=== PATIENT | male | born 1945 | race Asian ===

== ENCOUNTER 2016-11-08 08:42 | Day surgery (SDC) | payer OTHER, MEDICARE ==
[2016-11-07 14:42] VITALS: BMI 27.3
[2016-11-08] MEDS ORDERED: PROPOFOL 20 ML ONE ×5 (09:46→09:47)
[2016-11-08 10:47] VITALS: TEMP 97.7
[2016-11-08 11:28] VITALS: BP 101/77; PULSE 54
--- NOTE | 2016-11-11 13:15 | PATH ---
Surgical Pathology Report Patient Name: RAJIV LINDA [facility]. Rec. #: [id number] /Age/Gender: 1945 (Age: 71) / M Account: [id number] Location: [facility], [place]-ENDOSCOPY Taken: 11/08/2016 Received: 11/08/2016 Reported: 11/11/2016 Physicians: Jackie Milligan M.D. Specimen(s) Received A: BX 2ND PORTION DUODENUM & BULB B: BX ANTRUM C: BX GE JUNCTION D: BX RECTAL POLYPS Clinical History Adenoma surveillance, rule out celiac disease Gastritis, rectal polyps Final Diagnosis A. DUODENUM, SECOND PORTION AND BULB, BIOPSY: DUODENAL MUCOSA WITH MILD CHRONIC INFLAMMATION. NO HISTOLOGIC EVIDENCE OF GLUTEN SENSITIVE ENTEROPATHY (CELIAC DISEASE). B. STOMACH, ANTRUM, BIOPSY: GASTRIC ANTRAL AND OXYNTIC MUCOSA WITH MODERATE CHRONIC GASTRITIS WITH INTESTINAL METAPLASIA AND MARKED REACTIVE GASTROPATHY. NEGATIVE FOR DYSPLASIA. IMMUNOSTAIN FOR H. PYLORI IS NEGATIVE FOR ORGANISMS. C. GE JUNCTION, BIOPSY: SQUAMOUS EPITHELIUM WITH MARKED CHRONIC INFLAMMATION WITH FOCAL SIGNIFICANT INCREASE IN EOSINOPHILS (SEE COMMENT). NO COLUMNAR EPITHELIUM PRESENT (NO INTESTINAL METAPLASIA OF LANDRUM'S ESOPHAGUS IDENTIFIED). Comment: The biopsy shows significant increase of intraepithelial eosinophils. The number of eosinophils focally reaches 15-20/HPF. This eosinophilic count is above the usual numbers of eosinophils seen in GERD, reaching the threshold for eosinophilic esophagitis, and may suggest eosinophilic esophagitis in proper clinical and endoscopic settings. Clinical, endoscopic correlations and follow up are suggested. D. RECTUM, POLYPS, BIOPSY: HYPERPLASTIC POLYPS. Electronically Signed Frank Koehler M.D. Gross Description A. Received in formalin, labeled "biopsy second portion of duodenum and bulb" are 6 torres, irregular portions of soft tissue ranging from 0.2-0.5 cm. in greatest dimension. The specimens are submitted in toto in one cassette. B. Received in formalin, labeled "biopsy antrum" are 4 torres, irregular portions of soft tissue ranging from 0.1-0.5 cm in greatest dimension. The specimens are submitted in toto in one cassette. C. Received in formalin, labeled "biopsy GE junction" are 2 torers, irregular portions of soft tissue measuring 0.1 and 0.5 cm in greatest dimension. The specimens are submitted in toto in one cassette. D. Received in formalin, labeled "biopsy rectal polyps" are 2 torres, irregular portions of soft tissue measuring 0.5 and 0.8 cm in greatest dimension. The specimens are submitted in toto in one cassette. 11/08/201611/08/2016
== END 2016-11-08 11:33 | disposition home or self-care (01) ==
LOC: JASU-ENDO 08:42
PROVIDERS: ATTEND Internal Medicine Gastroenterology
PROC: 0DBP8ZX Excision of Rectum, Via Natural or Artificial Opening Endoscopic, Diagnostic (ICD-10-PCS; principal; 2016-11-08 09:30)
DX: Z86.010 Personal history of colon polyps (principal); K62.1 Rectal polyp; K64.8 Other hemorrhoids
CPT/HCPCS: 88305-TC; 88342-TC